=== PATIENT | female | born 1990 | race African-American/Black ===

== ENCOUNTER 2019-02-04 17:45 | Emergency (ER) | payer OTHER ==
[~2019-02-04] VITALS: Ht 154.9 cm; Wt 113.4 kg
[2019-02-04 18:13] VITALS: BP 130/80
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
[2019-02-04] MEDS ORDERED: IBUPROFEN600 MG ORAL (18:56)
[2019-02-04] MEDS ORDERED: ROBAXIN-750750 MG PO (18:56)
[2019-02-04 19:08] VITALS: BP 128/80
--- NOTE | 2019-02-04 19:08 | NUR ---
ER DISCHARGE NOTE: Patient is cleared to be discharged per ERMD, pt is aox4, on room air, with stable vital signs. pt was given dc and prescription instructions, pt was able to verbalize understanding, pt id band removed without complications. pt is able to ambulate with steady gait. pt took all belongings.
--- NOTE | 2019-02-05 12:32 | Diagnostic Imaging Report ---
Indication: Right knee Pain 3 views of the right knee were obtained. Findings: No acute fracture, malalignment, or joint effusion are identified. Impression: Negative for acute findings.
== END 2019-02-04 19:08 | disposition home or self-care (01) ==
LOC: EMR 18:10
DX: S80.01XA Contusion of right knee, initial encounter (principal); M54.6 Pain in thoracic spine; V43.52XA Car driver injured in collision with other type car in traffic accident, initial encounter; Y92.410 Unspecified street and highway as the place of occurrence of the external cause
CPT/HCPCS: 99283